=== PATIENT | male | born 1950 | race African-American/Black ===

== ENCOUNTER 2017-05-05 12:01 | Inpatient (IN) | payer OTHER ==
[~2017-05-05] VITALS: Ht 189.2 cm; Wt 54.4 kg
[2017-05-05] MEDS ORDERED: ONDANSETRON HCL 4MG/2ML VIAL IV ONE (12:15)
[2017-05-05] MEDS ORDERED: MORPHINE SULFATE 4 MG/ML CPJ (NOT FOR IM USE) IV ONE (12:15)
[2017-05-05] MEDS ORDERED: SODIUM CHLORIDE 0.9% 1000ML BAG (SEPSIS BOLUS) IV ONE (12:30)
[2017-05-05] MEDS ORDERED: ACETAMINOPHEN 650MG SUPP PR ONE (13:00)
[2017-05-05 13:34] LABS: GLUCOSE URINE NEGATIVE (NEGATIVE); KETONES URINE 1+ (NEGATIVE); LEUKOCYTE ESTERASE URINE TRACE (NEGATIVE); NITRITE URINE NEGATIVE (NEGATIVE); OCCULT BLOOD URINE NEGATIVE (NEGATIVE); PROTEIN URINE 1+ (NEGATIVE); SPECIFIC GRAVITY URINE 1.023 (1.005-1.030)
[2017-05-05 13:41] LABS: CLARITY URINE HAZY (CLEAR); COLOR URINE YELLOW (YELLOW)
[2017-05-05] MEDS ORDERED: SODIUM CHLORIDE 0.9% 1,000 ML IV ONE (14:56)
[2017-05-05] MEDS ORDERED: CEFTRIAXONE 1 G PREMIX 50 ML IV ONE (15:00)
[2017-05-05 15:18] LABS: INR 1.4; PROTHROMBIN TIME 14.3 sec
[2017-05-05 15:19] LABS: MEAN CORPUSCULAR HEMOGLOBIN 26.7 pg (28.0-32.0); MEAN PLATELET VOLUME 7.1 fl (7.4-10.4); PLATELET 183 x1000/uL (130-400); RED BLOOD CELL COUNT 2.15 mill/uL (4.7-6.1); RED CELL DISTRIBUTION WIDTH 17.3 % (11.6-14.6)
[2017-05-05 15:25] LABS: HEMATOCRIT. 18.2 % (42.0-52.0); HEMOGLOBIN. 5.7 g/dL (14.0-18.0)
[2017-05-05 15:27] LABS: CARBON DIOXIDE 25 mEq/L (21-32); CHLORIDE 104 mEq/L (98-107)
[2017-05-05 16:09] LABS: PLATELET ESTIMATE NORMAL
[2017-05-05 18:30] VITALS: BP 120/89
[2017-05-05 20:00] VITALS: BP 106/77
[2017-05-05] MEDS ORDERED: ZOLPIDEM TARTRATE 5MG TABLET PO PRN (20:15)
[2017-05-05] MEDS ORDERED: CLONIDINE 0.2MG TABLET PO SCH (20:15)
[2017-05-05] MEDS ORDERED: ACETAMINOPHEN 325MG TABLET PO PRN (20:15)
[2017-05-05] MEDS ORDERED: HYDROMORPHONE HCL/PF 2MG/ML CPJ IV PRN (20:15)
[2017-05-05] MEDS ORDERED: IPRATROPIUM/ALBUTEROL 0.5-3(2.5)MG/3ML NEB HHN PRN (20:15)
[2017-05-05 20:50] VITALS: BP 106/77
[2017-05-05] MEDS: LEVOFLOXACIN 500MG PREMIX 100 ML IV SCH (21:27)
[2017-05-05] MEDS: DEXT 5%/0.45% NACL 1000ML 1,000 ML IV SCH (21:28)
[2017-05-05 23:15] VITALS: BP 105/72
[2017-05-05 23:30] VITALS: BP 106/72
[2017-05-06] VITALS (18 sets, daily range): BP systolic 97–129; BP diastolic 61–82
[2017-05-06] MEDS: DEXT 5%/0.45% NACL 1000ML 1,000 ML IV SCH ×2 (06:02→16:24)
[2017-05-06] MEDS: PANTOPRAZOLE 40MG DR TABLET PO SCH (07:03)
[2017-05-06] MEDS ORDERED: LEVOFLOXACIN 500MG PREMIX 100 ML IV SCH (09:00)
[2017-05-06 11:27] LABS: HEMATOCRIT. 32.3 % (42.0-52.0); HEMOGLOBIN. 10.7 g/dL (14.0-18.0); MEAN CORPUSCULAR HEMOGLOBIN 27.7 pg (28.0-32.0); MEAN CORPUSCULAR VOLUME 83.5 fL (80.0-94.0); MEAN PLATELET VOLUME 7.3 fl (7.4-10.4); PLATELET 169 x1000/uL (130-400); RED BLOOD CELL COUNT 3.87 mill/uL (4.7-6.1); RED CELL DISTRIBUTION WIDTH 15.7 % (11.6-14.6)
[2017-05-06 11:39] LABS: CARBON DIOXIDE 26 mEq/L (21-32); CHLORIDE 105 mEq/L (98-107)
[2017-05-06 13:11] LABS: PLATELET ESTIMATE NORMAL
[2017-05-06] MEDS: LEVOFLOXACIN 500MG PREMIX 100 ML IV SCH (21:10)
[2017-05-07] VITALS (12 sets, daily range): BP systolic 100–146; BP diastolic 60–103
[2017-05-07] MEDS: DEXT 5%/0.45% NACL 1000ML 1,000 ML IV SCH ×2 (05:23→19:09)
[2017-05-07] MEDS: PANTOPRAZOLE 40MG DR TABLET PO SCH (05:55)
[2017-05-07 06:25] LABS: INR 1.3; PROTHROMBIN TIME 13.7 sec
[2017-05-07 06:39] LABS: HEMATOCRIT. 34.3 % (42.0-52.0); HEMOGLOBIN. 11.4 g/dL (14.0-18.0); MEAN CORPUSCULAR HEMOGLOBIN 28.2 pg (28.0-32.0); MEAN CORPUSCULAR VOLUME 84.3 fL (80.0-94.0); MEAN PLATELET VOLUME 7.5 fl (7.4-10.4); PLATELET 153 x1000/uL (130-400); RED BLOOD CELL COUNT 4.06 mill/uL (4.7-6.1); RED CELL DISTRIBUTION WIDTH 16.3 % (11.6-14.6)
[2017-05-07 06:58] LABS: CARBON DIOXIDE 26 mEq/L (21-32); CHLORIDE 105 mEq/L (98-107)
[2017-05-07] MEDS ORDERED: LIDOCAINE HCL 1% 20ML VIAL (Pyxis) INJ ONE (07:49)
[2017-05-07] MEDS ORDERED: SODIUM BICARBONATE 4% (2.4MEQ) 5ML VIAL IV ONE (07:49)
[2017-05-07] MEDS ORDERED: IOHEXOL-300 50 ML BOTTLE IV ONE (08:18)
[2017-05-07] MEDS ORDERED: IOHEXOL-300 100 ML BOTTLE ONE (08:18)
[2017-05-07 12:28] LABS: PLATELET ESTIMATE NORMAL
[2017-05-07] MEDS: LEVOFLOXACIN 500MG PREMIX 100 ML IV SCH (21:58)
[2017-05-08] VITALS (7 sets, daily range): BP systolic 117–137; BP diastolic 82–94
[2017-05-08] MEDS: DEXT 5%/0.45% NACL 1000ML 1,000 ML IV SCH ×3 (06:39→18:03)
[2017-05-08] MEDS: PANTOPRAZOLE 40MG DR TABLET PO SCH (06:40)
[2017-05-08 06:44] LABS: CARBON DIOXIDE 27 mEq/L (21-32); CHLORIDE 101 mEq/L (98-107)
[2017-05-08 07:00] LABS: HEMATOCRIT. 33.7 % (42.0-52.0); HEMOGLOBIN. 11.1 g/dL (14.0-18.0); MEAN CORPUSCULAR HEMOGLOBIN 28.1 pg (28.0-32.0); MEAN CORPUSCULAR VOLUME 84.9 fL (80.0-94.0); MEAN PLATELET VOLUME 7.7 fl (7.4-10.4); PLATELET 156 x1000/uL (130-400); RED BLOOD CELL COUNT 3.97 mill/uL (4.7-6.1); RED CELL DISTRIBUTION WIDTH 16.1 % (11.6-14.6)
[2017-05-08 10:21] LABS: PLATELET ESTIMATE NORMAL
[2017-05-08] MEDS ORDERED: POTASSIUM CHLORIDE INJ 40 MEQ in DEXT 5% WATER 250 ML IV NR (14:00)
[2017-05-08] MEDS: LEVOFLOXACIN 500MG PREMIX 100 ML IV SCH (20:34)
[2017-05-09] VITALS (7 sets, daily range): BP systolic 124–148; BP diastolic 86–106
[2017-05-09] MEDS: DEXT 5%/0.45% NACL 1000ML 1,000 ML IV SCH ×3 (04:30→18:54)
[2017-05-09] MEDS: FAMOTIDINE 20MG TABLET PO SCH ×2 (08:48→18:10)
[2017-05-09] MEDS: LEVOFLOXACIN 500MG TABLET PO SCH (18:10)
[2017-05-10] VITALS: BP 113/83
[2017-05-10 04:00] VITALS: BP 123/82
[2017-05-10 08:00] VITALS: BP 117/80
[2017-05-10] MEDS: FAMOTIDINE 20MG TABLET PO SCH ×2 (08:31→17:56)
[2017-05-10 12:00] VITALS: BP 123/83
[2017-05-10] MEDS: LEVOFLOXACIN 500MG TABLET PO SCH (12:25)
[2017-05-10] MEDS: DEXT 5%/0.45% NACL 1000ML 1,000 ML IV SCH ×2 (12:29→20:45)
[2017-05-10 16:00] VITALS: BP 140/89
[2017-05-10 20:00] VITALS: BP 118/81
[2017-05-10] MEDS: GUAIFENESIN 600MG ER TABLET PO SCH (20:44)
[2017-05-11] VITALS: BP 122/89
[2017-05-11 04:00] VITALS: BP 131/94
[2017-05-11] MEDS: CLONIDINE 0.2MG TABLET PO PRN (05:18)
[2017-05-11] MEDS: DEXT 5%/0.45% NACL 1000ML 1,000 ML IV SCH ×2 (07:20→21:25)
[2017-05-11 08:00] VITALS: BP 134/89
[2017-05-11] MEDS: GUAIFENESIN 600MG ER TABLET PO SCH ×2 (09:07→21:25)
[2017-05-11] MEDS: FAMOTIDINE 20MG TABLET PO SCH ×2 (09:07→21:25)
[2017-05-11] MEDS: LEVOFLOXACIN 500MG TABLET PO SCH (11:37)
[2017-05-11 12:00] VITALS: BP 105/76
[2017-05-11 16:00] VITALS: BP 127/95
[2017-05-11 20:00] VITALS: BP 132/90
[2017-05-12] VITALS: BP 123/89
[2017-05-12] MEDS: DEXT 5%/0.45% NACL 1000ML 1,000 ML IV SCH ×2 (02:30→11:22)
[2017-05-12 04:00] VITALS: BP 110/72
[2017-05-12 05:23] LABS: HEMATOCRIT. 29.9 % (42.0-52.0); HEMOGLOBIN. 9.9 g/dL (14.0-18.0); MEAN CORPUSCULAR HEMOGLOBIN 27.7 pg (28.0-32.0); MEAN CORPUSCULAR VOLUME 84.2 fL (80.0-94.0); MEAN PLATELET VOLUME 7.8 fl (7.4-10.4); PLATELET 110 x1000/uL (130-400); RED BLOOD CELL COUNT 3.56 mill/uL (4.7-6.1); RED CELL DISTRIBUTION WIDTH 16.1 % (11.6-14.6)
[2017-05-12 06:24] LABS: CARBON DIOXIDE 28 mEq/L (21-32); CHLORIDE 98 mEq/L (98-107)
[2017-05-12 07:09] LABS: PLATELET ESTIMATE SLIGHTLY DECREASED
[2017-05-12 08:00] VITALS: BP 115/84
[2017-05-12] MEDS ORDERED: POTASSIUM CHLORIDE 20MEQ TABLET SR PO SCH (08:30)
[2017-05-12] MEDS: FAMOTIDINE 20MG TABLET PO SCH (08:47)
[2017-05-12] MEDS: GUAIFENESIN 600MG ER TABLET PO SCH (08:47)
[2017-05-12] MEDS: LEVOFLOXACIN 500MG TABLET PO SCH (11:22)
[2017-05-12 12:00] VITALS: BP 160/102
[2017-05-12] MEDS: CLONIDINE 0.2MG TABLET PO PRN (12:29)
[2017-05-12 12:52] VITALS: BP 160/102
[2017-05-12 16:00] VITALS: BP 130/85
== END 2017-05-12 16:05 | disposition home or self-care (01) | DRG 166 ==
LOC: ER 12:34 → 6WST 16:28 → ENRESERV 17:11
PROVIDERS: ADMIT Internal Medicine; ATTEND Internal Medicine
PROC: 30233N1 Transfusion of Nonautologous Red Blood Cells into Peripheral Vein, Percutaneous Approach (ICD-10-PCS; 2017-05-05)
PROC: 06H03DZ Insertion of Intraluminal Device into Inferior Vena Cava, Percutaneous Approach (ICD-10-PCS; principal; 2017-05-07)
PROC: B5191ZA Fluoroscopy of Inferior Vena Cava using Low Osmolar Contrast, Guidance (ICD-10-PCS; 2017-05-07)
DX: C34.90 Malignant neoplasm of unspecified part of unspecified bronchus or lung (principal); G93.41 Metabolic encephalopathy; J96.90 Respiratory failure, unspecified, unspecified whether with hypoxia or hypercapnia; E43 Unspecified severe protein-calorie malnutrition; N39.0 Urinary tract infection, site not specified; I82.412 Acute embolism and thrombosis of left femoral vein; I82.432 Acute embolism and thrombosis of left popliteal vein; Z68.1 Body mass index [BMI] 19.9 or less, adult; D63.0 Anemia in neoplastic disease; I10 Essential (primary) hypertension; E86.0 Dehydration; N28.9 Disorder of kidney and ureter, unspecified; R74.8 Abnormal levels of other serum enzymes; Z79.899 Other long term (current) drug therapy
CPT/HCPCS: 36415; 36430; 37191; 51702; 71010; 80048; 80053; 81001; 82962; 83605; 83880; 84484; 85025; 85610; 86850; 86900; 86920; 87040; 87086; 92610; 93005; 94640; 96361; 96365; 99291; A6261; C1769; C1880; C1887; J0696; J1644; J1956; J3480; J3490; J7030; J7040; J7050; J7060; P9016; Q9967; A4315